=== PATIENT | female | born 1990 | race Caucasian/White ===

== ENCOUNTER 2021-11-11 09:52 | Day surgery (SDC) | payer OTHER ==
[~2021-11-11] VITALS: Ht 162.6 cm; Wt 101.8 kg
[~2021-11-11 09:52] MED LIST: APAP325T4 PO; BUPIVACAINE/EPIN 0.5% 30 ML VIAL As Ordered ONE; CYCL-707 PO; CYCL5TAB PO; ETON1VAG3 VG; NAPR-885 PO; TRAM50TA2 PO
[2021-11-11] MEDS ORDERED: MIDAZOLAM INJ 2MG/2ML VIAL (J2250 PER 1MG) As Ordered ONE (10:25)
[2021-11-11] MEDS ORDERED: fentaNYL 100 MCG/2 ML INJECTION As Ordered ONE (10:27)
[2021-11-11] MEDS ORDERED: propofoL 200 MG/20 ML VIAL As Ordered ONE (10:28)
[2021-11-11] MEDS ORDERED: LIDOCAINE 2% 100MG/5ML SDV (FOR ANES.) As Ordered ONE (10:28)
[2021-11-11] MEDS ORDERED: dexameTHASONE 4 MG/ML 1ML VIAL (J1100 PER 1MG) As Ordered ONE (10:30)
[2021-11-11] MEDS ORDERED: ROCURONIUM BROMIDE 50 MG/5 ML VIAL As Ordered ONE (10:41)
[2021-11-11] MEDS ORDERED: MONI1CRE2 VA (10:43)
[2021-11-11] MEDS ORDERED: LR 1,000 ML IV SCH ×2 (10:50→13:45)
[2021-11-11] MEDS ORDERED: BUPIVACAINE/EPIN 0.5% 30 ML VIAL As Ordered ONE (12:57)
[2021-11-11] MEDS ORDERED: ONDANSETRON 4MG 2ML VIAL As Ordered ONE (12:59)
[2021-11-11] MEDS ORDERED: HYDROmorphone HCL 2MG/ML 1ML VIAL As Ordered ONE (13:23)
[2021-11-11] MEDS ORDERED: fentaNYL 100 MCG/2 ML INJECTION IV PRN (13:45)
[2021-11-11] MEDS ORDERED: ONDANSETRON 4MG 2ML VIAL IV PRN (13:45)
[2021-11-11] MEDS: oxyCODONE 5MG TAB PO PRN ×2 (14:05→14:40)
[2021-11-11] MEDS: HYDROMORPHONE HCL 0.5 MG/ 0.5 ML SYRINGE (J1170 PER 1) IV PRN ×4 (14:06→14:47)
[2021-11-11 15:04] VITALS: BP 123/73
== END 2021-11-11 16:05 | disposition home or self-care (01) ==
LOC: M SDC 09:52
PROVIDERS: ATTEND Otolaryngology
DX: J35.03 Chronic tonsillitis and adenoiditis (principal); F41.9 Anxiety disorder, unspecified; R51.9 Headache, unspecified; Z79.899 Other long term (current) drug therapy; Z88.5 Allergy status to narcotic agent; Z91.013 Allergy to seafood; Z91.040 Latex allergy status
CPT/HCPCS: 42826; 81025; 88302; J1100; J1170; J2250; J2405; J3010

== ENCOUNTER 2022-11-15 22:15 | Emergency (ER) | payer OTHER ==
[~2022-11-15] VITALS: Ht 162.6 cm; Wt 98.6 kg
[~2022-11-15 22:15] MED LIST changes: -BUPIVACAINE/EPIN 0.5% 30 ML VIAL As Ordered ONE; +MONI1CRE2 VA
[2022-11-15] MEDS ORDERED: AMPH1CAP15 (22:23)
[2022-11-15] MEDS ORDERED: DICL100G10 (22:23)
[2022-11-15] MEDS ORDERED: IBUP80TA PO (22:23)
[2022-11-16] MEDS ORDERED: diazePAM 5MG TABLET PO ONE ×2 (05:15→06:55)
[2022-11-16] MEDS ORDERED: methylPREDNISolone 125MG 2ML VIAL IM ONE (05:15)
[2022-11-16] MEDS ORDERED: KETOROLAC 60MG 2ML VIAL IM ONE (06:55)
[2022-11-16] MEDS ORDERED: LIDOCAINE 5% (LIDODERM) PATCH TD ONE (06:55)
[2022-11-16] MEDS ORDERED: METH-1165 PO (06:56)
[2022-11-16] MEDS ORDERED: NAPR-837 PO (06:56)
[2022-11-16] MEDS ORDERED: ASPE4PAD TOP (06:56)
[2022-11-16] MEDS ORDERED: MEDR4PAK PO (06:56)
[2022-11-16 07:07] VITALS: BP 131/86; TEMP 96.7; O2SAT 98
== END 2022-11-16 07:26 | disposition home or self-care (01) ==
LOC: M ED 22:15
DX: M54.31 Sciatica, right side (principal); M54.50 Low back pain, unspecified; Z88.8 Allergy status to other drugs, medicaments and biological substances; Z91.040 Latex allergy status; Z91.013 Allergy to seafood; Z79.1 Long term (current) use of non-steroidal anti-inflammatories (NSAID); Z79.899 Other long term (current) drug therapy
CPT/HCPCS: 96372; 99283; J1885; J2930

== ENCOUNTER → 2023-05-19 | Outpatient (CLI) | payer OTHER ==
[~2023-05-19] MED LIST changes: +AMPH1CAP15; +ASPE4PAD TOP; +DICL100G10; +IBUP80TA PO; +MEDR4PAK PO; +METH-1165 PO; +NAPR-837 PO
== END ==
LOC: M WHC 15:47
PROVIDERS: ATTEND Nurse Practitioner Women's Health
DX: N64.4 Mastodynia (principal)
CPT/HCPCS: 76642; 77066; G0279